=== PATIENT | female | born 1980 | race Caucasian/White ===

== ENCOUNTER 2018-11-16 10:28 | Outpatient (REF) | payer MEDICAID, SELFPAY ==
[2018-11-16 19:44] LABS: TSH 0.03 uIU/mL (0.358-3.74)
== END 2018-11-16 10:48 ==
LOC: NCHCN 10:28
PROVIDERS: PCP Internal Medicine; Visit Provider Nurse Practitioner Family
DX: E89.0 Postprocedural hypothyroidism (principal)
CPT/HCPCS: 84443